=== PATIENT | male | born 1940 | race Caucasian/White ===

== ENCOUNTER 2019-08-25 11:54 | Inpatient (IN) | payer OTHER ==
[~2019-08-25] VITALS: Ht 165.1 cm; Wt 52.0 kg
[~2019-08-25 11:54] MED LIST: AMOX TR-K CLV1 EAC4 PO; AMOXICILLIN 50500 M1 PO; AMOXICILLIN500 M1 PO; FLOMAX0.4 MG PO; LEVAQUIN 750 M750 MG PO; PREDNISONE 20 M20 MG PO; VENTOLIN HFA 1818 GM INH
[2019-08-25 11:57] VITALS: BP 104/64
[2019-08-25] MEDS ORDERED: PEPTO-BISMOL262 M1 PO (12:12)
[2019-08-25] MEDS ORDERED: ASA81BEC PO (12:12)
[2019-08-25] MEDS ORDERED: TRUSOPT OCUMETE10 ML EA. EYE (12:13)
[2019-08-25] MEDS ORDERED: ALPHAGAN P15 ML EA. EYE (12:13)
[2019-08-25] MEDS ORDERED: FINASTERIDE5 MG PO (12:14)
[2019-08-25] MEDS ORDERED: ARNUITY ELLIP200 MCG INH (12:15)
[2019-08-25] MEDS ORDERED: IBU-200200 MG PO (12:15)
[2019-08-25] MEDS ORDERED: XALATAN2.5 ML OPHTHALMIC (12:16)
[2019-08-25] MEDS ORDERED: ZOFRAN ODT4 MG DISSOLVE (12:16)
[2019-08-25] MEDS ORDERED: LOPERAMIDE 2 MG2 M1 PO (12:16)
[2019-08-25 12:20] LABS: CALCIUM 8.9 mg/dL (8.5-10.1); CREATININE 1.7 mg/dL (0.7-1.3); POTASSIUM 4.9 mmol/L (3.5-5.1)
[2019-08-25 12:29] LABS: MAGNESIUM 1.6 mg/dL (1.8-2.4); TROPONIN-I 0.33 ng/mL (<0.06)
[2019-08-25 12:33] LABS: ABSOLUTE NEUTROPHILS 13.3 thou/uL (1.4-8.2); BASOPHILS 0.2 % (0.0-2.0); EOSINOPHILS 0.7 % (0.0-3.0); HEMATOCRIT 38.3 % (42.0-52.0); HEMOGLOBIN 12.3 gm/dL (14.0-18.0); LYMPHOCYTES 6.2 % (24.0-44.0); MCH 29.6 pg (26.0-34.0); MCHC 32.1 g/dL (28.0-37.0); MCV 92.2 fL (80.0-100.0); MONOCYTES 6.5 % (1.0-8.0); PLATELET COUNT 396 thou/uL (150-400); POLYS 86.4 % (36.0-66.0); RBC 4.16 mil/uL (4.50-6.00); WBC 15.3 thou/uL (4.0-11.0)
[2019-08-25 14:12] LABS: URINE BILIRUBIN NEGATIVE (Negative); URINE BLOOD TRACE (Negative); URINE CLARITY CLEAR; URINE COLOR YELLOW; URINE GLUCOSE-RANDOM* NEGATIVE (Negative); URINE KETONES NEGATIVE (Negative); URINE NITRITE-REFLEX NEGATIVE (Negative); URINE PROTEIN (DIPSTICK) NEGATIVE (Negative); URINE SPECIFIC GRAVITY 1.015 (1.005-1.035); URINE UROBILINOGEN 0.2 E.U./dl (0.2-1.0)
[2019-08-25 14:14] LABS: URINE LEUKOCYTES-REFLEX 1+ (Negative)
[2019-08-25 14:26] LABS: BACTERIA-REFLEX None Seen /HPF (None Seen); CASTS None Seen /LPF (None Seen); CRYSTALS None Seen /LPF (None Seen); SQUAMOUS 4-10 Moderate /LPF (0-3); URINE RBC None Seen /HPF (0-2); URINE WBC-REFLEX 6-15 Few /HPF (0-5)
[2019-08-25 15:23] VITALS: BP 80/64
--- NOTE | 2019-08-25 16:00 | 2DMMODE ---
[facility] [address] [place] [address] 2 D/M-MODE ECHOCARDIOGRAM Name: LOLAFOSTER [id number] Admission: 08/25/19 Attend Phys: Discharge: Date of : 38 Report #: [id number] THIS REPORT FOR: //name// APPROVED REPORT Study performed: 08/25/2019 15:01:49 EXAM: Comprehensive 2D, Doppler, and color-flow Echocardiogram Patient Location: Bedside Room #: 3 Status: routine BSA: 1.55 HR: 108 bpm BP: 98/59 mmHg Rhythm: Tachycardia Other Information Study Quality: Technically Difficult Indications COPD Elevated Troponin 2D Dimensions RVDd: 37.37 mm IVSd: 9.90 (7-11mm) LVOT Diam: 19.66 (18-24mm) LVDd: 44.07 mm PWd: 9.59 (7-11mm) LVDs: 35.54 (25-40mm) Aortic Root: 29.02 mm Volumes Left Atrial Volume (Systole) Single Plane 4CH: 28.25 mL Single Plane 2CH: 21.43 mL LA ESV Index: 18.00 mL/m2 Aortic Valve AoV Peak Zeyad.: 0.57 m/s AO Peak Gr.: 1.32 mmHg LVOT Max P.90 mmHg LVOT Max V: 0.47 m/s KALIN Vmax: 2.50 cm2 Mitral Valve E/A Ratio: 2.7 MV Decel. Time: 118.40 ms [facility] [address] [place] [address] 2 D/M-MODE ECHOCARDIOGRAM Name: FOSTER DAVILA Room #: REG [facility]#: [id number] Admission: 08/25/19 Attend Phys: Discharge: Date of : 39 Report #: [id number] MV E Max Zeyad.: 0.70 m/s MV A Zeyad.: 0.26 m/s MV PHT: 34.34 ms IVRT: 119.95 ms Pulmonary Valve PV Peak Zeyad.: 0.65 m/s PV Peak Gr.: 1.66 mmHg Tricuspid Valve TR Peak Zeyad.: 2.54 m/s RAP Estimate: 5.00 mmHg TR Peak Gr.: 25.81 mmHg PA Pressure: 31.00 mmHg Left Ventricle The left ventricle is normal size. There is global hypokinesis of the left ventricle. With what appears to be more prominent lateral wall hypokinesis There is normal left ventricular wall thickness. Left ventricular ejection fraction is severely decreased. LVEF is 20-25%. This study is not technically sufficient to allow evaluation of the LV diastolic function. Right Ventricle The right ventricle is normal size. The right ventricular systolic function is normal. Atria The left atrium size is normal. The right atrium size is normal. Aortic Valve Mild aortic valve sclerosis. No aortic regurgitation is present. There is no aortic valvular stenosis. Mitral Valve The mitral valve is normal in structure. Mild mitral regurgitation. No evidence of mitral valve stenosis. Tricuspid Valve The tricuspid valve is normal in structure. Mild tricuspid regurgitation. PAP is estimated at 31 mmHg. Pulmonic Valve Pulmonic valve is not well visualized. Great Vessels The aortic root is normal in size. Ascending aorta is not visualized. [facility] [address] [place] [address] 2 D/M-MODE ECHOCARDIOGRAM Name: FOSTER DAVILA [facility] #: [facility] [id number] Admission: 08/25/19 Attend Phys: Discharge: Date of : 38 Report #: [id number] IVC is normal in size and collapses >50% with inspiration. Pericardium There is no pericardial effusion. <Conclusion> The left ventricle is normal size. LVEF is 20-25%. There is global hypokinesis of the left ventricle. With what appears to be more prominent lateral wall hypokinesis Mild aortic valve sclerosis. The mitral valve is normal in structure. Mild mitral regurgitation. The tricuspid valve is normal in structure. Mild tricuspid regurgitation. PAP is estimated at 31 mmHg. Pulmonic valve is not well visualized. There is no pericardial effusion. <ELECTRONICALLY SIGNED> By: Juventino Green MD 08/25/19 1600 1600 Chon Green MD /INF
[2019-08-25 16:43] LABS: CHOLESTEROL 146 mg/dL (<200); HDL CHOLESTEROL 55 mg/dL (>40); LDL CHOLESTEROL 77 mg/dL (<100); TC:HDL 2.7 Ratio (Not establshd); TRIGLYCERIDE 70 mg/dL (<150); TROPONIN-I 0.32 ng/mL (<0.06); VLDL 14 mg/dL (<40)
[2019-08-25 17:01] VITALS: BP 104/63
[2019-08-25 17:20] VITALS: BP 93/61
--- NOTE | 2019-08-25 17:52 | EKG ---
[address] [address] ELECTROCARDIOGRAM REPORT Name: FOSTER DAVILA Room #: 205-P ADM IN M.R.#: [id number] Admission: 08/25/19 Attend Phys: Sybil Hopkins Discharge: Date of : 38 Report #: [id number] THIS REPORT FOR: //name// [facility] ED Test Date: 2019-08-25 Test Time: 12:48:05 Pat Name: FOSTER DAVILA Department: Room: 205 Gender: M [employer] Hcm Developer: RODNEY : 1940 Requested By: Arnel Pittman Order Number: [id number] MD: Eleazar Taylor Measurements Intervals [place] Rate: 109 P: 69 ID: 184 QRS: 81 QRSD: 88 T: 73 QT: 329 QTc: 444 Interpretive Statements Sinus tachycardia Minimal inferior repolarization abnormality Compared to ECG 07/11/2016 15:23:04 No significant change was found Electronically Signed On 08-25-2019 17:51:46 CURRICULUM COACH by Eleazar Taylor [email or web address] <ELECTRONICALLY SIGNED> By: Eleazar Taylor MD, [facility] 08/25/19 1751 1248 1248 Eleazar Taylor MD, FACC /EPI
--- NOTE | 2019-08-25 18:38 | NUR ---
PT ARRIVED TO UNIT FROM ER AT APPROX 1700 ACCOMPANIED BY FRIEND. PT ALERT AND ORIENTED X3, VSS, O2 SATS WNL ON ROOM AIR. C/O CHRONIC BACK PAIN, DID NOT REQUEST ANY PAIN MEDS. APPETITE LESS THAN FAIR, ATTEMPTED TO EAT DINNER. ADMISSION COMPLETE, TELE STRIP PRINTED AND DOCUMENTED, TELE SHEET DISCUSSED WITH PT- COMMUNICATES UNDERSTANDING. DENIES NEEDS AT THIS TIME. WILL CONT TO MONITOR PT AND FOLLOW POC.
[2019-08-25 20:35] VITALS: BP 90/59
[2019-08-26] VITALS (31 sets, daily range): BP systolic 66–140; BP diastolic 27–73
[2019-08-26 03:19] LABS: BE(vivo) -20.8 mmol/L (-2 to +3); HCO3 10.7 mmol/L (22.0-26.0); PCO2 47.6 mmHg (35.0-45.0); PO2 482.4 mmHg (80.0-100.0); sO2 99.7 % (92.0-98.0)
--- NOTE | 2019-08-26 04:02 | NUR ---
ASSUMED PT CARE AT 1900. PT WAS MOSTLY CONFUSED, BUT ORIENTED TO HIMSELF AND SITUATION. PT WAS PUT ON 2L O2 DUE TO EXERTIONAL DYSPNEA. PT WAS SINUS TACHYCARDIA ON THE MONITOR, RATE IN THE LOW 100'S. WITH ACTIVITY HIS HEARTRATE WILL GO UP TO 130'S AND 150'S BUT RESOOLVES AT REST. AT ABOUT 0240, PT WAS ASSISTED TO THE RESTROOM, HIS HEARTRATE WENT UP TO THE 150'S, HE SUDDENLY BECAME PALE AND LOST CONCIOUSNESS. KAMILA NELSON WAS CALLED, COMPRESSIONS STARTED. AFTER ABOUT 2MINS OF COMPRESSIONS, PT WAS SHOCKED ONCE AND A PULSE WAS DETECTED. COMPRESSIONS WERE STOPPED AND PT WAS INTUBATED AND TRANSFERED TO ICU. PT'S POINT OF CONTACT WAS CONTACTED AND INFORMED. CARDIOLOGY WAS CALLED AND INFORMED OF THE SITUATION.
[2019-08-26 04:11] LABS: CALCIUM 8.3 mg/dL (8.5-10.1); POTASSIUM 5.7 mmol/L (3.5-5.1)
[2019-08-26 04:28] LABS: CREATININE 2.8 mg/dL (0.7-1.3)
[2019-08-26 04:48] LABS: BE(vivo) -6.9 mmol/L (-2 to +3); HCO3 17.3 mmol/L (22.0-26.0); PCO2 30.6 mmHg (35.0-45.0); PO2 196.2 mmHg (80.0-100.0); pH 7.369 (7.360-7.450); sO2 99.3 % (92.0-98.0)
--- NOTE | 2019-08-26 05:45 | NUR ---
Pt transferred from CCU after Code Blue, where he had been assisted to the floor after ambulating from the bathroom and was displaying respiratory distress. He was intubated, and lightly sedated on propofol when he was brought to the unit. He has been resistive to cares, pulling at the restraints when attempting to place an OGT, reaching for the ETT, and moving off the radiology board. Propofol was titrated and vitals have been stable, he is resting comfortably now. Monitor reads ST 108 on the monitor, EKG shows junctional tachycardia, BP has been low, but MAP has maintained over 60 mmHg. OGT was placed, and per last radiology report, will need to be advanced and placement checked again. Hernandez catheter was also placed, with immediate return of urine, stat lock in place. Lungs are quite coarse, and he is currently at 40% FiO2, ABG's are showing improvement in pH and lactate dropped by half. Pt was admitted with a portacath to his right upper chest, it is accessed and flushes freely. Will continue towards care plan goals.
[2019-08-26 07:58] LABS: HEMOGLOBIN 11.8 gm/dL (14.0-18.0)
[2019-08-26 08:00] LABS: MCH 29.3 pg (26.0-34.0); MCHC 31.8 g/dL (28.0-37.0); MCV 92.1 fL (80.0-100.0); RBC 4.02 mil/uL (4.50-6.00); RDW 14.9 % (10.5-14.5)
[2019-08-26 08:09] LABS: WBC 46.4 thou/uL (4.0-11.0)
[2019-08-26 08:50] LABS: ALBUMIN 2.6 g/dL (3.4-5.0); CALCIUM 8.4 mg/dL (8.5-10.1); CREATININE 2.8 mg/dL (0.7-1.3); TOTAL BILIRUBIN 0.4 mg/dL (<0.1-1.0); TOTAL PROTEIN 5.6 g/dL (6.4-8.2)
[2019-08-26 08:59] LABS: POTASSIUM 4.4 mmol/L (3.5-5.1)
--- NOTE | 2019-08-26 09:09 | NUR ---
TAE RIGGS TOOK PT'S VALUABLES HOME. 4 CREDIT CARDS.$303 HU, 2 GOLD COLORED CHAINS AND INSURANCE CARD, DRIVERS LICENSE, 1 SET OF MULTIPLE KEYS.
--- NOTE | 2019-08-26 09:39 | EKG ---
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: : 1940 Requested By: Arnel Pittman Order Number: [id number] MD: Eleazar Taylor Measurements Intervals [place] Rate: 113 P: 72 AR: 172 QRS: 74 QRSD: 86 T: 75 QT: 312 QTc: 428 Interpretive Statements Sinus tachycardia Atrial premature complex Low voltage, extremity and precordial leads ST elevation, consider inferior injury Compared to ECG 07/11/2016 15:23:04 Atrial premature complex(es) now present Electronically Signed On 08-26-2019 9:39:02 CREAM SEPARATOR OPERATOR by Eleazar Taylor [email or web address] <ELECTRONICALLY SIGNED> By: Eleazar Taylor MD, [facility] 08/26/19 0939 1158 1158 Eleazar Taylor MD, [facility] /EPI
--- NOTE | 2019-08-26 09:54 | EKG ---
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: sv : 1940 Requested By: Ольга Mattson Order Number: [id number] MD: Eleazar Taylor Measurements Intervals [place] Rate: 109 P: [place]: QRS: 84 QRSD: 95 T: 93 QT: 478 QTc: 645 Interpretive Statements Sinus tachycardia Low voltage ST elevation, consider inferior injury Prolonged QT interval Compared to ECG 08/25/2019 12:48:05 ST segment abnormality is persistent lateral T wave abnormality is new Electronically Signed On 08-26-2019 9:53:54 EDUCATION PROFESSIONAL by Eleazar Taylor [email or web address] <ELECTRONICALLY SIGNED> By: Eleazar Taylor MD, [facility] 08/26/19 0953 0505 0505 Eleazar Taylor MD, [facility] /EPI
--- NOTE | 2019-08-26 10:23 | NUR ---
1010- DR. ALCALA ROUNDED ON PT AND STATED TO NURSE TO NOT GIVE NEW BICARB ORDER AND TO LET DR. MARTIN KNOW THAT HE DID NOT WANT IT GIVEN. DR. ALCALA ALSO STATED TO CONSULT DR. WHALEN, PALLITATIVE CARE 1015- DR. MARTIN NOTIFED AND STATED FOR NURSE TO GIVE BICARB HE PREVIOUSLY ORDERED. DR. MARTIN ALSO STATED TO HOLD OFF ON PALLITATIVE CONSULT UNTIL HE SPEAKS TO THE SON OF MR. DAVILA WHO IS SUPPOSED TO VISIT THIS AFTERNOON. RN TO CALL DR. MARTIN WHEN SON ARRIVES.
--- NOTE | 2019-08-26 10:39 | NUR ---
Nutrition: If tube feeds desired, REC Jevity 1.5 at 25 mL/hr with slow advance to 40 mL/hr goal. Pt high refeeding syndrome risk.
--- NOTE | 2019-08-26 12:35 | NUR ---
SON AND EX AND NEIGHBOR/FRIEND AT BEDSIDE. SON SPOKE WITH PHYSICIAN ON PHONE AND DECIDED TO MAKE PT DNR AND WITHDRAWAL CARE. SPIRITUAL CARE NOTIFIED AND WILL COME SEE FAMILY. AWAITING PHYSICIAN TO ENTER SOME MEDICATION ORDERS. RT NOTIFIED AND STATED HE WILL BE OVER IN 30 MINUTES FROM NOW TO EXTUBATE.
--- NOTE | 2019-08-26 13:36 | NUR ---
ASKED BY DR. MARTIN THIS AM TO ASSIST WITH FINDING FAMILY. PT IS INTUBATED AND NOT RESPONSIVE. MET WITH PT'S FRIEND TAE RIGGS [phone] HE HAS PT'S PHONE AND WAS ABLE TO CONTACT PT'S ESTRANGED SON AND EX . FAMILY HERE NOW AND DR. MARTIN SPOKE WITHHTEM. PLAN TO PALLIATIVELY EXTUBATE PT. SPIRITUAL CARE PROVIDING SUPPORT ON GOING. DISCUSSED WITH RN. CASE MANAGEMENT AVAILABLE TO ASSIST WITH DISCHARGE NEEDS.
--- NOTE | 2019-08-26 16:43 | NUR ---
KENJI DAVILA- GRANDDAUGHTER- [phone] JERRY MATILDE- SON- [phone]
[2019-08-27] VITALS: BP 77/42
[2019-08-27 01:00] VITALS: BP 71/39
[2019-08-27 02:00] VITALS: BP 74/38
--- NOTE | 2019-08-27 03:18 | NUR ---
Assumed care of pt at 0245, she is resting at this time, vitals are stable, will complete 0400 assessment. Per report, pt has been taking PO food/fluids better. IVF's were not started, conway remains patent, with adequate output noted at approx 800 ml's voided. Will continue to monitor.
--- NOTE | 2019-08-27 05:45 | NUR ---
When providing oral care this morning, pt clamped down on the swab, he then opened his eyes when he was repositioned, with tremors noted to BUE, morphine had been titrated to 2 mg/hr. He closed his eyes again, and is currently resting comfortably, will continue to titrate this med for his comfort and any evidence of air hunger. He did not follow commamnds, did not track. He remains tachycardic, SBP have been low, upper 60's to 70's, MAP's have been from upper 40's to low 60's. O2 at 2 L/m via NC, sats are mid 90's, respirations are unlabored from 14 to 18. Hernandez is patent, draining yellow urine, output is low, <300 for the shift. NS infusing at 20 ml/hr for morphine gtt. Fecal mgmt system is patent, quantity of diarrheal stool has decreased. Will continue to monitor.
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
--- NOTE | 2019-08-27 10:50 | EKG ---
[address] [address] ELECTROCARDIOGRAM REPORT Name: FOSTER DAVILA Room #: 244-P [facility] IN M.R.#: [id number] Admission: 08/25/19 Attend Phys: Haresh Hunter MD Discharge: Date of : 38 Report #: [id number] THIS REPORT FOR: //name// [facility] Test Date: 2019-08-27 Test Time: 07:20:20 Pat Name: FOSTER DAVILA Department: Room: 244 Gender: M Sports Management Professor: TRAE : 1940 Requested By: Eleazar Taylor Order Number: [id number] MD: Devaughn Hackett Measurements Intervals [place] Rate: 115 P: 78 MN: 143 QRS: 74 QRSD: 90 T: 67 QT: 299 QTc: 414 Interpretive Statements Sinus tachycardia Low voltage, extremity and precordial leads Electronically Signed On 08-27-2019 10:49:49 WEB WEAVER by Devaughn Hackett [email or web address] <ELECTRONICALLY SIGNED> By: Devaughn Hackett MD 08/27/19 1049 0720 07 Devaughn Hackett MD /TERESA
--- NOTE | 2019-08-27 13:42 | NUR ---
ASSESSMENTS AND INTERVENTIONS TOLERATED. PATIENT RESTING. FAMILY UPDATED ABOUT POC. PATIENT REMAINS ON COMFORT MEASURES. PATIENT TRANSFERRED TO [address] [place] [address] WITH RN. RERPORT GIVEN TO LENA CHAPMAN.
--- NOTE | 2019-08-27 17:44 | NUR ---
ASSUMED CARE OF THE PATIENT AROUND 1300. PT IS ON COMFORT CARE MEASURES ONLY AND HAS A MORPHINE DRIP RUNNING. PT HAS A URINARY CATHETER AND FECAL BAG ATTACHED, INTACT AND WORKING. PT HAS BEEN TAKING SHALLOW BREATHES ON AND OFF ALONG WITH APNEA. ALL 4 BEDRAILS ARE UP. FAMILY HAS BEEN CALLED. WILL CONTINUE TO MONITOR THE PT UNTIL NOC NURSE IS GIVEN REPORT.
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
== END 2019-08-27 19:06 ==
LOC: ER 11:54 → ICU 16:46 → EROBS 16:46 → 2N 16:47 → ICU 08-26 03:15 → 4S 08-27 13:25
PROVIDERS: Emergency Medicine; Hospitalist; Internal Medicine Pulmonary Disease; Nurse Practitioner Family; ADMIT Hospitalist
DX: I21.4 Non-ST elevation (NSTEMI) myocardial infarction (principal); J96.21 Acute and chronic respiratory failure with hypoxia; E43 Unspecified severe protein-calorie malnutrition; N17.9 Acute kidney failure, unspecified; C25.9 Malignant neoplasm of pancreas, unspecified; R64 Cachexia; I42.9 Cardiomyopathy, unspecified; C78.7 Secondary malignant neoplasm of liver and intrahepatic bile duct; N39.0 Urinary tract infection, site not specified; Z68.1 Body mass index [BMI] 19.9 or less, adult; E87.4 Mixed disorder of acid-base balance; Z60.2 Problems related to living alone; I46.9 Cardiac arrest, cause unspecified; I49.01 Ventricular fibrillation; J43.2 Centrilobular emphysema; Z51.5 Encounter for palliative care; D64.9 Anemia, unspecified; D72.829 Elevated white blood cell count, unspecified; I95.9 Hypotension, unspecified; R56.9 Unspecified convulsions; Z99.81 Dependence on supplemental oxygen; Z79.82 Long term (current) use of aspirin; Z79.899 Other long term (current) drug therapy; Z87.891 Personal history of nicotine dependence; Z80.9 Family history of malignant neoplasm, unspecified; Z85.72 Personal history of non-Hodgkin lymphomas
CPT/HCPCS: 10078; 10081